=== PATIENT | male | born 1960 | race African-American/Black ===

== ENCOUNTER 2021-09-25 02:21 | Inpatient (IN) | payer OTHER ==
[~2021-09-25] VITALS: Ht 188 cm; Wt 132.0 kg
[2021-09-25] MEDS ORDERED: ONDANSETRON HCL 4MG/2ML INJ IV STA (02:27)
[2021-09-25] MEDS ORDERED: MORPHINE SULFATE 4 MG/ML CPJ (NOT FOR IM USE) IV STA (02:27)
[2021-09-25 03:00] LABS: BASOPHILS % 0.7 % (0.0-2.0); EOSINOPHILS % 0.7 % (0.0-5.0); HEMATOCRIT. 38.8 % (42.0-52.0); HEMOGLOBIN. 13.3 g/dL (14.0-18.0); LYMPHOCYTES % 23.5 % (20.0-50.0); MEAN CORPUSCULAR HEMOGLOBIN 30.8 pg (28.0-32.0); MEAN CORPUSCULAR VOLUME 90.2 fL (80.0-94.0); MEAN PLATELET VOLUME 7.9 fl (7.4-10.4); MONOCYTES % 6.8 % (2.0-8.0); NEUTROPHILS % 68.3 % (40.0-76.0); PLATELET 217 x1000/uL (130-400); RED CELL DISTRIBUTION WIDTH 13.7 % (11.6-14.6)
[2021-09-25 03:07] LABS: CHLORIDE 100 mEq/L (98-107)
[2021-09-25] MEDS ORDERED: CEFTRIAXONE 1 G PREMIX 50 ML IV NR (03:30)
[2021-09-25] MEDS ORDERED: AZITHROMYCIN 500MG/250ML 250 ML IV SCH (04:00)
[2021-09-25 09:04] VITALS: BP 132/78
[2021-09-25 09:14] VITALS: BP 132/78
[2021-09-25] MEDS ORDERED: ASPI-1497 PO (09:49)
[2021-09-25] MEDS ORDERED: COR6 PO (09:49)
[2021-09-25] MEDS ORDERED: BENA10TA74 PO (09:49)
[2021-09-25] MEDS ORDERED: METF-874 PO (09:49)
[2021-09-25] MEDS ORDERED: ATOR40TA70 PO (09:49)
[2021-09-25] MEDS ORDERED: MAGNESIUM/ALUMINUM HYDROXIDE/SIMETHICONE 30ML UDC PO PRN (10:15)
[2021-09-25] MEDS ORDERED: CLONIDINE 0.1MG TABLET PO PRN (10:15)
[2021-09-25] MEDS ORDERED: DEXTROSE 50% WATER 50ML SYRINGE IV PRN (10:15)
[2021-09-25] MEDS ORDERED: ACETAMINOPHEN 325MG TABLET PO PRN ×2 (10:15)
[2021-09-25] MEDS ORDERED: ONDANSETRON HCL 4MG/2ML INJ IV PRN (10:15)
[2021-09-25] MEDS ORDERED: MORPHINE SULFATE 2 MG/ML CPJ (NOT FOR IM USE) IV PRN (10:15)
[2021-09-25] MEDS ORDERED: GUAIFENESIN 200MG/10ML SUGAR FREE UDC PO PRN (10:15)
[2021-09-25] MEDS ORDERED: DIPHENHYDRAMINE 50MG/ML VIAL IV PRN (10:15)
[2021-09-25] MEDS ORDERED: NALOXONE HCL 0.4MG/ML VIAL IV PRN (10:30)
[2021-09-25] MEDS: ASPIRIN 81MG EC TABLET PO SCH (10:57)
[2021-09-25] MEDS: CARVEDILOL 6.25 MG TABLET PO SCH ×2 (10:57→20:26)
[2021-09-25] MEDS: ENOXAPARIN 40MG/0.4ML SYR SUBCUT SCH ×2 (10:58→20:29)
[2021-09-25] MEDS: BENAZEPRIL 10MG TABLET PO SCH (10:58)
[2021-09-25 12:00] VITALS: BP 106/65
[2021-09-25] MEDS: BLOOD SUGAR DIAGNOSTIC STRIP TEST SCH ×3 (13:12→21:52)
[2021-09-25] MEDS ORDERED: SODIUM CHLORIDE 0.9% INJ 3ML FLUSH IVF SCH (14:00)
[2021-09-25] MEDS: INSULIN LISPRO 100 UNITS/ML SUBCUT SCH ×3 (14:38→21:00)
[2021-09-25 16:00] VITALS: BP 116/70
[2021-09-25] MEDS: METFORMIN HCL 500MG TABLET PO SCH (18:37)
[2021-09-25 20:00] VITALS: BP 113/69
[2021-09-25] MEDS ORDERED: ATORVASTATIN CALCIUM 40MG TABLET PO SCH (21:00)
[2021-09-25] MEDS ORDERED: ZOLPIDEM TARTRATE 5MG TABLET PO PRN (21:00)
[2021-09-26] VITALS: BP 108/63
[2021-09-26 04:00] VITALS: BP 137/85
[2021-09-26] MEDS: BLOOD SUGAR DIAGNOSTIC STRIP TEST SCH ×2 (07:20→12:43)
[2021-09-26] MEDS: INSULIN LISPRO 100 UNITS/ML SUBCUT SCH ×2 (07:50→12:43)
[2021-09-26 08:00] VITALS: BP 125/79
[2021-09-26] MEDS: METFORMIN HCL 500MG TABLET PO SCH (08:31)
[2021-09-26] MEDS: BENAZEPRIL 10MG TABLET PO SCH (08:31)
[2021-09-26] MEDS: ENOXAPARIN 40MG/0.4ML SYR SUBCUT SCH (08:31)
[2021-09-26] MEDS: ASPIRIN 81MG EC TABLET PO SCH (08:32)
[2021-09-26] MEDS: CARVEDILOL 6.25 MG TABLET PO SCH (08:32)
[2021-09-26 12:00] VITALS: BP 106/59
[2021-09-26 14:11] LABS: *AMPHETAMINES SCREEN URINE NEGATIVE (NEGATIVE); *BARBITURATES SCREEN URINE NEGATIVE (NEGATIVE); *BENZODIAZEPINES SCREEN URINE NEGATIVE (NEGATIVE); *COCAINE SCREEN URINE PRESUMTIVE POSITIVE (NEGATIVE); CANNABINOID URINE SCREEN PRESUMTIVE POSITIVE (NEGATIVE); METHADONE URINE SCREEN NEGATIVE (NEGATIVE); OPIATES URINE SCREEN NEGATIVE (NEGATIVE); PHENCYCLIDINE URINE SCREEN NEGATIVE (NEGATIVE)
[2021-09-26 15:10] VITALS: BP 110/60
[2021-09-26 15:34] VITALS: BP 110/60
[2021-09-26] MEDS ORDERED: ENOXAPARIN 30MG/0.3ML SYR SUBCUT SCH (21:00)
== END 2021-09-26 16:23 | disposition home or self-care (01) | DRG 203 ==
LOC: ER 02:21 → EDBD 02:21 → 6WST 04:53
PROVIDERS: ADMIT Internal Medicine; ATTEND Internal Medicine
DX: M94.0 Chondrocostal junction syndrome [Tietze] (principal); I11.0 Hypertensive heart disease with heart failure; I50.9 Heart failure, unspecified; E11.9 Type 2 diabetes mellitus without complications; I25.10 Atherosclerotic heart disease of native coronary artery without angina pectoris; J45.998 Other asthma; Z20.822 Contact with and (suspected) exposure to COVID-19; E78.00 Pure hypercholesterolemia, unspecified; F17.210 Nicotine dependence, cigarettes, uncomplicated; F14.10 Cocaine abuse, uncomplicated; I25.2 Old myocardial infarction; Z79.82 Long term (current) use of aspirin; Z79.899 Other long term (current) drug therapy; Z83.3 Family history of diabetes mellitus
CPT/HCPCS: 36415; 71045; 80053; 80305; 80320; 82962; 83036; 83605; 83880; 84145; 84484; 85025; 87426; 93005; 93306; 99291; J0456; J0696; J1650; J1815; J2270; J2405; G0480